=== PATIENT | male | born 1990 | race Caucasian/White ===

== ENCOUNTER → 2022-10-19 | Outpatient (CLI) | payer OTHER | LOC: M PLAIMG 14:46 | PROVIDERS: ATTEND Physician Assistant | DX: M25.532 Pain in left wrist (principal) ==

== ENCOUNTER → 2022-11-16 | Outpatient (CLI) | payer OTHER | LOC: M PLAIMG 12:46 | PROVIDERS: ATTEND Physician Assistant | DX: S62.002S Unspecified fracture of navicular [scaphoid] bone of left wrist, sequela (principal) ==